=== PATIENT | male | born 1980 | race Caucasian/White ===

== ENCOUNTER 2017-08-03 11:41 | Emergency (ER) | payer MEDICAID ==
[~2017-08-03] VITALS: Ht 177.8 cm; Wt 68.2 kg
[2017-08-03] MEDS ORDERED: PROP10TA10 PO (12:42)
[2017-08-03] MEDS ORDERED: olanzapine PO (12:42)
[2017-08-03] MEDS ORDERED: tums PO (12:42)
[2017-08-03] MEDS ORDERED: BUPR1FIL3 SL (12:42)
[2017-08-03] MEDS ORDERED: CLON1TAB12 PO (12:42)
[2017-08-03] MEDS ORDERED: clonazePAM 1mg tablet PO SCH ×2 (13:00→21:00)
[2017-08-03] MEDS ORDERED: CALCIUM CARBONATE PO PRN (13:25)
[2017-08-03] MEDS ORDERED: CALC500T11 PO (13:25)
[2017-08-03] MEDS ORDERED: OLAN10TA19 PO (13:25)
[2017-08-03] MEDS ORDERED: calcium carbonate 500mg chew tablet PO PRN (13:30)
[2017-08-03 17:41] VITALS: BP 116/80
[2017-08-03] MEDS ORDERED: OLAN15TA3 PO (17:44)
[2017-08-03] MEDS ORDERED: propranolol 10mg tablet PO SCH (20:00)
[2017-08-03] MEDS ORDERED: olanzapine 10mg tablet PO SCH (21:00)
[2017-08-04] MEDS ORDERED: BUPRENORPHINE HCL SL SCH (08:00)
[2017-08-04] MEDS ORDERED: [UNRECOGNIZED DRUG - OTHER] SL SCH (08:00)
[2017-08-04] MEDS ORDERED: NALOXONE HCL SL SCH (08:00)
[2017-08-04] MEDS ORDERED: buprenorphine/naloxone 8MG-2MG SUBlingual film SL SCH (08:00)
== END 2017-08-03 18:11 | disposition home or self-care (01) ==
LOC: ER 11:41
DX: F29 Unspecified psychosis not due to a substance or known physiological condition (principal); F41.9 Anxiety disorder, unspecified; F32.9 Major depressive disorder, single episode, unspecified; Z79.899 Other long term (current) drug therapy
CPT/HCPCS: 99283; 99284

== ENCOUNTER 2022-06-19 02:08 | Emergency (ER) | payer MEDICAID ==
[~2022-06-19] VITALS: Ht 177.8 cm; Wt 77.3 kg
[~2022-06-19 02:08] MED LIST: BUPR1FIL3 SL; CALC500T11 PO; CLON1TAB12 PO; OLAN10TA73 PO; OLAN15TA3 PO; PROP10TA10 PO
[2022-06-19] MEDS ORDERED: diphenhydrAMINE 50 mg/ml inj IV ONE (02:35)
[2022-06-19 03:15] LABS: CLARITY,URINE CLEAR (Clear); COLOR,URINE YELLOW (Yellow); GLUCOSE, URINE NEGATIVE (Neg); KETONES,URINE 15 mg/dl (Neg); LEUKOCYTE ESTERASE ,URINE NEGATIVE (Neg); NITRITES, URINE NEGATIVE (Neg); OCCULT BLOOD,URINE NEGATIVE (Neg); PROTEIN,URINE NEGATIVE (Neg); UROBILINOGEN,URINE 0.2 E.U/dL (0.2-1.0)
[2022-06-19 03:25] LABS: UA COLLECTION TYPE URINAL
[2022-06-19 03:31] LABS: URINE AMPHETAMINE SCREEN NEGATIVE (Neg); URINE BARBITUATE SCREEN NEGATIVE (Neg); URINE BENZODIAZEPINES SCREEN POSITIVE (Neg); URINE CANNABINOID SCREEN NEGATIVE (Neg); URINE COCAINE SCREEN NEGATIVE (Neg); URINE METHADONE SCREEN NEGATIVE (Neg); URINE OPIATE SCREEN NEGATIVE (Neg); URINE PHENCYCLIDINE SCREEN NEGATIVE (Neg)
[2022-06-19 04:07] LABS: ALANINE AMINOTRANSFERASE 32 U/L (12-78); ALBUMIN 3.7 G/DL (3.4-5.0); ALBUMIN/GLOBULIN RATIO 1.2 (1.1-1.5); ALKALINE PHOSPHATASE 74 IU/L (46-116); ANION GAP 7 (8-16); ASPARTATE AMINO TRANSFERASE 15 U/L (10-37); BILIRUBIN,TOTAL 0.2 MG/DL (0.1-1.0); BLOOD UREA NITROGEN 14 MG/DL (7-18); BUN/CREATININE RATIO 14.6 (10.0-20.0); CALCIUM 8.6 MG/DL (8.5-10.1); CHLORIDE 102 MMOL/L (99-107); CREATININE 0.96 MG/DL (0.60-1.10); GLUCOSE 108 MG/DL (70-104); POTASSIUM 3.7 MMOL/L (3.5-5.1); SODIUM 139 MMOL/L (135-145); TOTAL PROTEIN 6.7 G/DL (6.4-8.2); eGFR 87 ML/MIN
[2022-06-19 04:13] LABS: HEMATOCRIT 40.1 % (42.0-52.0); HEMOGLOBIN 13.9 g/dl (14.0-17.9); MEAN CORPUSCULAR HEMOGLOBIN 32.2 PG (27.0-31.0); MEAN CORPUSCULAR HGB CONC 34.7 g/dL (33.0-36.5); MEAN CORPUSCULAR VOLUME 92.7 FL (78-98); MEAN PLATELET VOLUME 7.4 FL (7.4-10.4); PLATELET COUNT 292 X10'3 (140-440); RED BLOOD COUNT 4.33 X10'6 (4.70-6.10); RED CELL DISTRIBUTION WIDTH 12.3 % (11.5-14.5); WHITE BLOOD COUNT 7.4 X10'3 (4.5-11.0)
[2022-06-19 04:15] LABS: ETHANOL < 0.010 GM/DL (0.0-0.010)
[2022-06-19 04:16] LABS: TOTAL CELLS COUNTED 100
[2022-06-19 04:17] LABS: PLATELET ESTIMATE NORMAL
[2022-06-19] MEDS ORDERED: LORazepam 1 MG tablet PO ONE (04:25)
[2022-06-19] MEDS ORDERED: LORA2TAB96 PO (04:32)
[2022-06-19 04:47] VITALS: BP 116/67
== END 2022-06-19 04:49 | disposition home or self-care (01) ==
LOC: ER 02:08
DX: F20.2 Catatonic schizophrenia (principal)
CPT/HCPCS: 36415; 80053; 80305; 80320; 81003; 84443; 85007; 85025; 96374; 99283; J1200